=== PATIENT | male | born 1960 | race Caucasian/White ===

== ENCOUNTER → 2021-10-15 | Outpatient (CLI) | payer MEDICARE, OTHER | LOC: US 10:30 | DX: M25.561 Pain in right knee (principal) | CPT/HCPCS: 76882 ==

== ENCOUNTER → 2021-11-11 | Outpatient (CLI) | payer MEDICARE, OTHER | LOC: EMI 08:50 | DX: M79.9 Soft tissue disorder, unspecified (principal); S83.511A Sprain of anterior cruciate ligament of right knee, initial encounter; M23.321 Other meniscus derangements, posterior horn of medial meniscus, right knee; M94.8X6 Other specified disorders of cartilage, lower leg; M71.21 Synovial cyst of popliteal space [Baker], right knee; M65.9 Synovitis and tenosynovitis, unspecified; M25.461 Effusion, right knee | CPT/HCPCS: 73723; A9577 ==

== ENCOUNTER → 2021-11-13 | Outpatient (CLI) | payer MEDICARE, OTHER ==
[~2021-11-13] MED LIST: ATORVASTATIN CA40 MG PO; BUPRENORPHIN-N1 EACH SL; DICLOFENAC SODI75 MG PO; GABAPENTIN800 MG PO; LEVOTHYROXINE300 MCG PO; LISINOPRIL-HCT1 EAC2 PO; MIRTAZAPINE45 MG PO; NORVASC5 MG PO; PAXIL40 MG PO; VOLTAREN EC 7575 MG PO
[2021-11-13 10:16] LABS: HEMOGLOBIN 11.8 gm/dl (14.0-17.5); RED BLOOD COUNT 3.74 M/UL (4.20-5.50); WHITE BLOOD COUNT 11.8 K/UL (4.5-11.0)
[2021-11-13 10:36] LABS: BUN/CREATININE RATIO 16 (0-10)
== END ==
LOC: OPSV2 09:00 → EDSTATUS 09:00 → OPSV2 09:11
PROVIDERS: Orthopaedic Surgery
DX: Z01.818 Encounter for other preprocedural examination (principal); M17.11 Unilateral primary osteoarthritis, right knee
CPT/HCPCS: 80048; 85027; 93005